=== PATIENT | female | born 1980 | race Caucasian/White ===

== ENCOUNTER → 2019-10-01 09:23 | Outpatient (CLI) | payer BC, SELFPAY ==
[2019-09-16 11:41] VITALS: BMI 30.8
--- NOTE | 2019-10-01 09:32 | BI_ITS ---
MAMMOGRAPHY - BILATERAL DIAGNOSTIC REASON FOR EXAM: Female, 39 years old. Bilateral breast pain. PERTINENT HISTORY: Non-contributory. TECHNIQUE: Digital bilateral breast teena (3D mammographic acquisition) in the CC and MLO projections. 2-D mediolateral oblique (MLO) and craniocaudad (CC) views of both breasts were obtained. CAD: Full Field Digital Mammography with Computer Added Detection was performed. COMPARISON: No comparison mammograms available at this time. If any prior films become available, an addendum to this report can be generated. FINDINGS: Breast Composition: The breasts are almost entirely fatty. There are no dominant masses or suspicious calcifications. There is a 4.8 mm well-defined nodule in the superior retroareolar region of the left breast. Correlation with ultrasound is recommended. Benign-appearing bilateral axillary lymph nodes. No other significant abnormalities are identified. BI/DIAG MAMM W/CAD, BILAT IMPRESSION: 4.8 mm well-defined nodule in the superior retroareolar region of the left breast. Correlation with ultrasound is recommended. ASSESSMENT CATEGORY: BIRADS Category 2: Benign. A letter regarding these results will be sent to the patient by the facility within 30 days. Approximately 10% of breast cancers are not detected by mammography. A normal mammogram should not delay biopsy of a clinically suspicious abnormality. Electronically Signed: Michael Taylor, at 10:50 EDT , Service support ,
--- NOTE | 2019-10-01 10:37 | US_ITS ---
STUDY: ULTRASOUND BREAST - LEFT REASON FOR EXAM: Female, 39 years old. Pain in the left breast. TECHNIQUE: Axial and longitudinal images of the LEFT breast were performed with a high resolution ultrasound transducer. # OF IMAGES: 48 COMPARISON: Comparison is made with prior mammogram done earlier today. FINDINGS: LEFT Breast: The retroareolar region of the breast was examined by ultrasound. There is homogeneous fibroglandular tissue. No solid or cystic mass lesion is seen. US/Breast Limited Unilateral IMPRESSION: Unremarkable sonogram. ASSESSMENT CATEGORY: BIRADS Category 1: Negative. A letter regarding these results will be sent to the patient by the facility within 30 days. Electronically Signed: Michael Taylor, at 12:16 EDT , Service support ,
== END ==
PROVIDERS: Referring Provider Nurse Practitioner Women's Health; Visit Provider Nurse Practitioner Women's Health
DX: N64.4 Mastodynia (principal)
CPT/HCPCS: 76642; 77062; 77066; G0279

== ENCOUNTER → 2019-10-08 13:54 | Outpatient (CLI) | payer BC, SELFPAY ==
[2019-10-08 13:41] VITALS: BMI 30.8
--- NOTE | 2019-10-08 13:55 | BI_ITS ---
MAMMOGRAPHY - UNILATERAL DIAGNOSTIC: LEFT BREAST REASON FOR EXAM: Female, 39 years old. Workup for small retroareolar nodular density. PERTINENT HISTORY: Non-contributory. TECHNIQUE: Compression spot views of the left breast in the mediolateral oblique and craniocaudad views were obtained. CAD: Full Field Digital Mammography with Computer Added Detection was performed. COMPARISON: Comparison is made with prior mammogram dated October 01, 2019. FINDINGS: Breast Composition: The breasts are almost entirely fatty. I suspect a persistent 4.5 mm nodular density within the slightly superior lateral aspect of the retroareolar region of the breast. A repeat targeted sonogram is recommended. No other significant abnormalities are identified. BI/DIAG MAMM W/CAD, UNILAT IMPRESSION: Persistent nodular density as described. A repeat targeted sonogram is recommended. ASSESSMENT CATEGORY: BIRADS Category 0: Incomplete. Need additional imaging evaluation. A letter regarding these results will be sent to the patient by the facility within 30 days. Approximately 10% of breast cancers are not detected by mammography. A normal mammogram should not delay biopsy of a clinically suspicious abnormality. Electronically Signed: Michael Taylor, at 14:43 EDT , Service support ,
== END ==
PROVIDERS: Referring Provider Surgery; Visit Provider Surgery
DX: N63.0 Unspecified lump in unspecified breast (principal)
CPT/HCPCS: 77065

== ENCOUNTER → 2019-10-12 10:46 | Outpatient (CLI) | payer BC, SELFPAY ==
[2019-10-08 13:41] VITALS: BMI 30.8
--- NOTE | 2019-10-12 10:51 | US_ITS ---
STUDY: ULTRASOUND BREAST - LEFT REASON FOR EXAM: Female, 39 years old. LEFT BREAST PAIN ABN LEFT MAMM TECHNIQUE: Axial and longitudinal images of the LEFT breast were performed with a high resolution ultrasound transducer. # OF IMAGES: 30 COMPARISON: None. FINDINGS: LEFT Breast: There is an oval-shaped lesion in the retroareolar area in the left breast measuring 0.4 x 0.4 x 0.2 cm Posterior Enhancement: No. Posterior Shadowing: None. Margins: Sharp and smooth. Echogenicity: Hypoechoic. Compression effect on Shape: No change. US/Breast Limited Unilateral IMPRESSION: Probably benign lesion in the area of described abnormality on the mammogram. ASSESSMENT CATEGORY: BIRADS Category 3: Probably Benign - Short-Interval Follow-up Suggested. A letter regarding these results will be sent to the patient by the facility within 30 days. Electronically Signed: James Girard, at 10:32 EDT Tel , Service support ,
== END ==
PROVIDERS: Referring Provider Nurse Practitioner Women's Health; Visit Provider Surgery
DX: N64.4 Mastodynia (principal)
CPT/HCPCS: 76642

== ENCOUNTER → 2020-04-13 12:30 | Outpatient (CLI) | payer OTHER, SELFPAY ==
[2019-10-08 13:41] VITALS: BMI 30.8
--- NOTE | 2020-04-13 12:32 | US_ITS ---
STUDY: ULTRASOUND BREAST - LEFT REASON FOR EXAM: Female, 40 years old. Six-month follow-up examination. TECHNIQUE: Axial and longitudinal images of the LEFT breast were performed with a high resolution ultrasound transducer. # OF IMAGES: 15 COMPARISON: Comparison is made with prior sonogram dated 10/12/2019. FINDINGS: LEFT Breast: There is a 3 mm x 3 mm x 3 mm well-defined hypoechoic nodule in the retroareolar region of the left breast. This is essentially unchanged. This is not a typical cyst. Biopsy is recommended. US/Breast Limited Unilateral IMPRESSION: Stable 10 mm x 3 mm x 3 mm well-defined hypoechoic solid nodule in the retroareolar region of the breast as described. This is essentially unchanged. Tissue diagnosis is recommended. ASSESSMENT CATEGORY: BIRADS Category 4: Suspicious - Biopsy Should Be Considered. A letter regarding these results will be sent to the patient by the facility within 30 days. Electronically Signed: Michael Taylor, at 13:25 EST , Service support ,
== END ==
PROVIDERS: Referring Provider Surgery; Visit Provider Surgery
DX: R92.8 Other abnormal and inconclusive findings on diagnostic imaging of breast (principal)
CPT/HCPCS: 76642

== ENCOUNTER → 2020-04-18 16:32 | Outpatient (CLI) | payer OTHER, SELFPAY ==
[2019-10-08 13:41] VITALS: BMI 30.8
--- NOTE | 2020-04-18 13:52 | BRBX_PTH ---
PATIENT: JANELL CUNNINGHAM LOC: [facility] U#:[id number] AGE/SX: 45/F ROOM: RE04/18/[address]: Dr. Bereket Shaw MD : 1980 BED: DIS: SPEC #: [id number] RECD: 04/18/20 16:02 STATUS: MANUEL SONYA #: [id number] CLAUDY: 04/18/20 13:[address]: Bereket Shaw DEPT: SURGICAL PATHOLOGY RECD BY: Tere Green Tissues: Breast, NOS Procedures: Surgery Specimen Level IV HEADER OPERATION: Left breast biopsy PRE-OP DIAGNOSIS: Left breast nodule TISSUE SUBMITTED: Left breast tissue MICROSCOPIC DIAGNOSIS Left breast tissue, core biopsy: Fibrocystic changes and moderate to florid intraductal hyperplasia without atypia. Negative for malignancy. See comment. CONY:fritz 04/21/20 COMMENT Correlation with clinical, radiologic findings and appropriate follow up are necessary. MICROSCOPIC DESCRIPTION Slides are reviewed. GROSS DESCRIPTION Received in fixative is one container labeled with the patient name and designated left breast. The specimen consists of multiple elongated fragments of gan-yellow fibroadipose tissue that in aggregate measure 2 x 1.5 x 0.1 cm. The entire specimen is submitted in one cassette. / SJ:rg 04/19/20 TC:5 CPT: 61607
== END ==
PROVIDERS: Visit Provider Surgery
DX: N63.20 Unspecified lump in the left breast, unspecified quadrant (principal)
CPT/HCPCS: 88305

== ENCOUNTER → 2020-09-19 09:17 | Outpatient (CLI) | payer OTHER, SELFPAY ==
[2019-10-08 13:41] VITALS: BMI 30.8
--- NOTE | 2020-09-19 09:20 | US_ITS ---
STUDY: ULTRASOUND BREAST - LEFT REASON FOR EXAM: Female, 40 years old. Abnormal screening mammogram. TECHNIQUE: Axial and longitudinal images of the LEFT breast were performed with a high resolution ultrasound transducer. # OF IMAGES: 20 COMPARISON: Comparison is made with prior mammogram done earlier today as well as prior ultrasound of the left breast dated 04/13/2020. FINDINGS: LEFT Breast: There is a 4 mm x 3 mm x 3 mm cyst in the right joint region of the breast. US/Breast Limited Unilateral IMPRESSION: 4 mm x 3 mm x 3 mm cyst in the retroareolar region of the left breast. ASSESSMENT CATEGORY: BIRADS Category 2: Benign. A letter regarding these results will be sent to the patient by the facility within 30 days. Electronically Signed: Michael Taylor MD at 12:44 EDT , Service support ,
--- NOTE | 2020-09-19 09:20 | BI_ITS ---
MAMMOGRAPHY - BILATERAL DIAGNOSTIC REASON FOR EXAM: Female, 40 years old. Left breast mass. PERTINENT HISTORY: Non-contributory. TECHNIQUE: Digital bilateral breast teena (3D mammographic acquisition) in the CC and MLO projections. 2-D mediolateral oblique (MLO) and craniocaudad (CC) views of both breasts were obtained. CAD: Full Field Digital Mammography with Computer Added Detection was performed. COMPARISON: Comparison is made with prior study dated 10/01/2019. FINDINGS: Breast Composition: The breasts are almost entirely fatty. There are no dominant masses or suspicious calcifications. A tissue clip marker is seen in the retrocrural region of the left breast. The previously seen nodular density has decreased in size. It presently measures 2 mm. Stable appearance of the small bilateral axillary lymph nodes. No other significant abnormalities are identified. There has been no significant change since the prior study. BI/DIAG MAMM W/CAD, BILAT IMPRESSION: Status post left breast biopsy. With the patient''s history of a left breast mass, correlation with ultrasound is recommended. ASSESSMENT CATEGORY: BIRADS Category 0: Incomplete. Need additional imaging evaluation. A letter regarding these results will be sent to the patient by the facility within 30 days. Approximately 10% of breast cancers are not detected by mammography. A normal mammogram should not delay biopsy of a clinically suspicious abnormality. Electronically Signed: Michael Taylor MD at 11:11 EDT , Service support ,
== END ==
PROVIDERS: Referring Provider Surgery; Visit Provider Surgery
DX: N63.20 Unspecified lump in the left breast, unspecified quadrant (principal)
CPT/HCPCS: 76642; 77062; 77066; G0279

== ENCOUNTER 2021-07-10 16:53 | Emergency (ER) | payer BC, SELFPAY ==
[2021-07-10 16:57] VITALS: BP 143/113; PULSE 96; RESP 15; TEMP 36.7; O2SAT 99; BMI 31.4
--- NOTE | 2021-07-10 17:45 | EX.ED.DYSGE1 ---
HPI History of Present Illness Chief Complaint: Weakness Detail of Chief Complaint: Weakness and not feeling well for several days Informant: patient Narrative Narrative: Patient presents to the emergency department with complaint of feeling off. Patient states that she has been under a lot of stress lately as she has been caring for her elderly grandparents. Patient also states that her best friend recently and she also had to put her cat to sleep. Patient has history of PTSD and anxiety. Patient states that she feels jittery inside. Last night she took a half a milligram of Ativan which helped her fall asleep and she was able to sleep. Patient also is concerned she might be dehydrated as she has a dry mouth and poor skin turgor. She has been eating normally but does not feel like he is drinking enough fluids. She denies any fever or cough or COVID symptoms. She has not had the COVID vaccine. Patient denies urinary symptoms. Patient also tells me she has a history of seizure disorder and had been on Depakote but has not taken it for over a month. Patient states that its been years since she has had a seizure. Prior similar symptoms: No PFSH PFS Medical History (Updated 07/10/21 @ 19:[address] Tamie Lopes, DO) Breast pain Celiac disease Epilepsy Thomas's disease IBS (irritable bowel syndrome) PTSD (post-traumatic stress disorder) Home Medications albuterol sulfate 90 mcg/actuation aerosol inhaler 2 puff INHALATION Q6H PRN 09/16/19 [History Last Taken Unknown] divalproex 250 mg tablet,extended release 24 hr 10 mg/kg PO DAILY 09/16/19 [History Last Taken Unknown] divalproex 500 mg tablet,extended release 24 hr 500 mg PO DAILY 09/16/19 [History Last Taken Unknown] estradiol 2 mg tablet 2 mg PO DAILY 09/16/19 [History Last Taken Unknown] levothyroxine 150 mcg tablet 150 mcg PO DAILY 09/16/19 [History Last Taken Unknown] lorazepam 0.5 mg tablet 0.5 mg PO DAILY PRN 09/16/19 [History Last Taken Unknown] pseudoephedrine 60 mg-DM 15 mg-guaifenesin 400 mg tablet 1 tab PO Q4H PRN 09/16/19 [History Last Taken Unknown] cholecalciferol (vitamin D3) 1,250 mcg (50,000 unit) capsule 50,000 unit PO QWEEK cap 10/08/19 [History Last Taken Unknown] vitamin B complex 1 cap PO DAILY 10/08/19 [History Last Taken Unknown] Allergy/AdvReac Type Severity Reaction Status Date / Time azithromycin AdvReac Severe heart race Verified 07/10/21 17:00 cefaclor [From Ceclor] AdvReac Severe everything Verified 07/10/21 17:00 shuts down levofloxacin [From Levaquin] AdvReac Intermediate ligament Verified 07/10/21 17:00 pain carbamazepine [From Tegretol] AdvReac Unknown unknown Verified 07/10/21 17:00 ketorolac [From Toradol] AdvReac Unknown Unknown Verified 07/10/21 17:00 dexamethasone AdvReac Other Verified 07/10/21 17:00 Family History Mother Asthma Arthritis Diabetes Grandfather Hypertension Sister Seizures Thyroid disorder Surgical History Cholecystectomy planned H/O sinus surgery H/O: hysterectomy History of tonsillectomy and adenoidectomy S/P removal of ovarian cyst Social History (Updated 04/18/20 @ 14:[address] Bereket Shaw MD) number of children: 0 current occupational status: unemployed Smoking Status: Never smoker alcohol intake: never substance use type: does not use diet: gluten free seatbelt use: always do you feel safe at home: Yes additional social history: [place] ROS ROS ED Constitutional Constitutional ED: Reports systems reviewed and no addt'l complaints, except as documented; Denies body ache(s), change in weight or chills Eyes Eyes: Denies acute decrease in peripheral vision, change in vision, double vision or loss of vision ENT ENT ED: Reports none and other Details: Dry mouth ; Denies ear pain, lip swelling, loss taste/smell, neck pain, otalgia or sore throat Cardiovascular Cardiovascular: Reports none; Denies abdominal pain, chest pain with activity, leg edema, lightheadedness, palpitations, rapid heart rate or syncope Respiratory/Chest Respiratory/Chest: Reports none; Denies change in mental status, dry cough, dyspnea, hemoptysis, shortness of breath at rest or shortness of breath with exertion Gastrointestinal Gastrointestinal: Reports none; Denies abdominal pain, change in stool character, diarrhea, hematemesis, hematochezia, melena, rectal bleeding or vomiting Genitourinary Genitourinary ED: Reports none; Denies abdominal discomfort, anuria, dysuria, genital pain or polyuria Musculoskeletal Musculoskeletal: Reports none; Denies arthralgias, back pain, difficulty walking, extremity pain, muscle weakness or myalgias Integumentary Reports none; Denies abscess or rash Neurologic Neurologic: Reports none and other Details: Feels jittery, lightheaded ; Denies abnormal gait, confusion, focal weakness, frequent falls, headache(s), loss of vision, numbness, paresthesias, radicular pain, vertigo or weakness Psychiatric Psychiatric: Reports systems reviewed and no addt'l complaints, except as documented and none; Denies behavioral changes, confusion, difficulty concentrating, hallucinations, suicidal ideation, tactile hallucinations or visual hallucinations Endocrine Endocrinology: Denies none, cold intolerance, excessive sweating, fatigue or heat intolerance Hematologic/Lymphatic Hematologic/Lymphatic: Reports none; Denies anemia, easy bleeding or easy bruising Allergic/Immunologic Allergic/Immunologic ED: Denies as per HPI, none, lip swelling, mouth swelling, throat swelling, tongue swelling or hives EXAM Physical Exam Const Vital Signs: 07/10/21 16:57 07/10/21 19:22 07/10/21 19:28 Temperature 98.0 F Temperature Source Temporal Pulse Rate 96 91 Pulse Rate [Lying] 80 Pulse Rate [Sitting] 79 Pulse Rate [Standing] 107 H Respiratory Rate 15 20 H Respiratory Effort Respiratory Pattern Blood Pressure 143/113 H 113/85 H Blood Pressure [Lying] 122/79 H Blood Pressure [Sitting] 126/77 H Blood Pressure [Standing] 113/85 H Blood Pressure Mean 123 94 Blood Pressure Mean [Lying] 93 Blood Pressure Mean [Sitting] 93 Blood Pressure Mean [Standing] 94 Pulse Ox 99 96 Oxygen Delivery Method Room Air Room Air 07/10/21 19:31 07/10/21 19:48 Temperature Temperature Source Pulse Rate 87 Pulse Rate [Lying] Pulse Rate [Sitting] Pulse Rate [Standing] Respiratory Rate 18 Respiratory Effort Normal Non-Labored Respiratory Pattern Normal Blood Pressure 118/82 H Blood Pressure [Lying] Blood Pressure [Sitting] Blood Pressure [Standing] Blood Pressure Mean 94 Blood Pressure Mean [Lying] Blood Pressure Mean [Sitting] Blood Pressure Mean [Standing] Pulse Ox 94 Oxygen Delivery Method Room Air Positive well nourished and well developed General Appearance ED: well developed and NAD HEENT Reports TM's clear and moist mucous membranes normocephalic and atraumatic; Negative for trauma or tenderness Tympanic Membrane ED: Yes TM's clear Eyes PERRL and EOMs intact bilaterally General Eye ED: Negative for pale conjunctiva or scleral icterus Neck no lymphadenopathy, supple and no JVD General: Negative for tenderness Chest Wall inspection of chest normal and palpation of chest normal Chest: Negative for tenderness Resp normal respiratory effort and clear to auscultation bilaterally Effort and Inspection: Negative for respiratory distress or pain with movement Auscultation: Negative for rhonchi, wheezes or diminished lung sounds Cardio regular rate, regular rhythm, S1 normal heart sound, S2 normal heart sound and no murmurs Peripheral Pulses: pulses 2+ throughout GI normal to inspection, nondistended, normoactive bowel sounds, soft to palpation, non-tender, non-distended and no masses Back/Spine no CVA tenderness and no thoracic nor lumbar tenderness Extremity normal to inspection General Extremety ED: Negative for edema General Extremity: Negative for edema Neuro oriented x3, CN's II-XII intact bilaterally, no sensory deficits noted and gait normal Sensorium / Orientation: awake, alert, oriented to person, oriented to place and oriented to time Motor Exam: strength 5/5 throughout and strength abnormal Psych mental status grossly normal Skin no rashes or lesions noted and no wounds MDM MDM MDM Narrative Medical decision making narrative: IV line established on arrival. Patient was given a liter normal same fluid bolus. Patient was given a milligram of Ativan. She did feel improved. At this point I feel likely symptoms related to stress and anxiety. Patient in agreement. I recommended following up with a counselor or psychiatrist for some talk therapy and potentially getting on daily medication to assist with her anxiety and stress. Patient still has as needed Ativan at home. Lab Data Attestation: I reviewed the patient's lab results. Labs: Laboratory Results - last 24 hr 07/10/21 07/10/21 07/10/21 18:10 18:10 18:10 WBC 8.2 RBC 5.01 Hgb 14.4 Hct 41.9 MCV 83.6 MCH 28.7 MCHC 34.4 RDW Std Deviation 37.3 RDW Coeff of Cheryl 12.3 Plt Count 322 MPV 9.5 Immature Gran % (Auto) 0.400 Neut % (Auto) 80.4 H Lymph % (Auto) 14.2 L [place] % (Auto) 4.3 Eos % (Auto) 0.5 Baso % (Auto) 0.2 Absolute Neuts (auto) 6.6 Absolute Lymphs (auto) 1.17 Nucleated RBC % 0 Sodium 139 Potassium 3.8 Chloride 107 Carbon Dioxide 27.0 Anion Gap 5 BUN 13 Creatinine 0.63 Estim Creat Clear Calc 86.89 Est GFR (MDRD) Af Amer 133 Est GFR (MDRD) Non-Af 110 BUN/Creatinine Ratio 20.7 H Glucose 122 H Calcium 9.8 Urine Color Yellow Urine Clarity Clear Urine pH 6.0 Ur Specific [place] 1.020 Urine Protein Negative Urine Glucose (UA) Normal Urine Ketones Negative Urine Occult Blood Negative Urine Nitrite Negative Urine Bilirubin Negative Urine Urobilinogen Normal Ur Leukocyte Esterase Negative Urine RBC 0 SEEN Urine WBC 0 SEEN Ur Squamous Epith Cells 0 SEEN Urine Bacteria 0 SEEN Urine Mucus 0 SEEN Discharge Plan Triage Chief Complaint: Weakness ED Provider: Tamie Lopes Dx/Rx/DC Orders Clinical Impression: Anxiety, Stress reaction Instructions: Treating Anxiety Disorders ..., Identifying Causes of Stress, Stress Relief: Relaxation, ED Anxiety Reaction Prescriptions: No Action divalproex 250 mg tablet extended release 24 hr 10 mg/kg PO DAILY RF: 0 divalproex 500 mg tablet extended release 24 hr 500 mg PO DAILY RF: 0 levothyroxine [Synthroid] 150 mcg tablet 150 mcg PO DAILY RF: 0 estradiol 2 mg tablet 2 mg PO DAILY RF: 0 Capmist DM 60-15-400 mg tablet 1 tab PO Q4H PRNRF: 0 lorazepam [Ativan] 0.5 mg tablet 0.5 mg PO DAILY PRNRF: 0 albuterol sulfate 90 mcg/actuation HFA aerosol inhaler 2 puff INHALATION Q6H PRNRF: 0 cholecalciferol (vitamin D3) 1,250 mcg (50,000 unit) capsule 50,000 unit PO QWEEK RF: 0 vitamin B complex [Super B-50 Complex] Capsule 1 cap PO DAILY RF: 0 Referrals: KHARI PETERSEN [Other] Disposition Disposition: Home, Self Care
[2021-07-10 18:20] LABS: Absolute Lymphocyte Count 1.17 X10^3/uL (0.83-4.51); Absolute Neutrophil Count 6.6 X10^3/uL (2.0-7.7); Basophil# 0.02 X10^3/uL; Basophil% 0.2 % (0-1); Eosinophil# 0.04 X10^3/uL; Eosinophils% 0.5 % (0-5); Hematocrit 41.9 % (37-47); Hemoglobin 14.4 g/dL (12.0-15.0); Lymphocyte # 1.17 X10^3/ul (0.83-4.51); Lymphocyte % 14.2 % (19-41); Mean Corp Hgb Conc 34.4 g/dL (32-36); Mean Corpuscular Hgb 28.7 pg (27.0-32.0); Mean Corpuscular Volume 83.6 fL (81-99); Mean Platelet Vol. 9.5 fl (6.2-12.0); Monocyte# 0.35 X10^3/uL; Monocyte% 4.3 % (0-10); NRBC Flagged by Analyzer 0 % (0-5); Neutrophil # 6.61 X10^3/uL (2.7-7.7); Neutrophil % 80.4 % (47-70); Platelet Count 322 K/mm3 (150-450); RBC Distribution Width CV 12.3 % (11.6-14.6); RBC Distribution Width SD 37.3 fl (35.1-43.9); Red Blood Count 5.01 M/mm3 (4.2-5.4); White Blood Count 8.2 K/mm3 (4.4-11.0)
[2021-07-10 18:33] LABS: Anion Gap 5 (5-15); BUN 13 mg/dL (7-18); BUN/Creat Ratio 20.7 RATIO (10-20); Calcium,Total 9.8 mg/dL (8.5-10.1); Chloride 107 mmol/L (98-107); Creatinine, Serum 0.63 mg/dL (0.55-1.02); EST Glomerular Filtration Rate 110 mL/min (>60); Est Glom Filt Rate - Afr Amer 133 mL/min (>60); Estimated Creatinine Clearance 86.89 ml/min; Glucose 122 mg/dL (74-106); Potassium 3.8 mmol/L (3.5-5.1); Sodium Level 139 mmol/L (136-145)
[2021-07-10] MEDS: LORazepam 2 MG/ML Syringe 1 MG IV (19:15)
[2021-07-10] MEDS: 0.9% Normal Saline 1,000 ML 1000 ML IV (19:15)
[2021-07-10 19:22] VITALS: BP 113/85; BP 122/79; BP 126/77; PULSE 107; PULSE 79; PULSE 80
[2021-07-10 19:28] VITALS: BP 113/85; PULSE 91; RESP 20; O2SAT 96
[2021-07-10 19:34] LABS: Bacteria 0 SEEN /hpf (None Seen); Mucous, Urine 0 SEEN /hpf (<or=2+); Red Blood Cells-Urine 0 SEEN /hpf (0-5); Squamous Epithelial Cells - UA 0 SEEN /hpf (5-10); White Blood Cells 0 SEEN /hpf (0-5)
[2021-07-10 19:38] LABS: Color, Urine Yellow (Yellow); Glucose, Dipstick Normal (Normal); Ketone-Dipstick Negative (Negative); Leukocyte Esterase-Dipstick Negative /ul (Negative); Nitrite-Dipstick Negative (Negative); Occult Blood-Urine Negative /ul (Negative); Protein-Dipstick Negative (Negative); Urine Bilirubin Dipstick Negative (Negative); Urine Clarity Clear (Clear); Urine Urobilinogen Normal (Normal)
[2021-07-10 19:48] VITALS: BP 118/82; PULSE 87; RESP 18; O2SAT 94
[2021-07-10 20:07] VITALS: BP 111/71; PULSE 87; RESP 20; O2SAT 96
== END 2021-07-10 20:50 | disposition home or self-care (01) ==
PROVIDERS: Emergency Provider Emergency Medicine; Visit Provider Emergency Medicine
DX: F43.9 Reaction to severe stress, unspecified (principal); G40.909 Epilepsy, unspecified, not intractable, without status epilepticus; Z56.0 Unemployment, unspecified; F41.9 Anxiety disorder, unspecified; E06.3 Autoimmune thyroiditis; K58.9 Irritable bowel syndrome, unspecified; F43.10 Post-traumatic stress disorder, unspecified
CPT/HCPCS: 80048; 81001; 85025; 96361; 96374; 99285; J7030; A4216

== ENCOUNTER → 2021-09-20 | Outpatient (CLI) | payer BC, SELFPAY ==
--- NOTE | 2021-09-20 10:54 | BI_ITS ---
MAMMOGRAPHY - BILATERAL SCREENING REASON FOR EXAM: Female, 41 years old. Routine annual screening examination. PERTINENT HISTORY: Non-contributory. TECHNIQUE: Digital bilateral breast brittney (3D mammographic acquisition) in the CC and MLO projections. 2-D mediolateral oblique (MLO) and craniocaudad (CC) views of both breasts were obtained. CAD: Full Field Digital Mammography with Computer Added Detection was performed. COMPARISON: Comparison is made with prior examination dated 09/19/2020 and 10/01/2019. FINDINGS: Breast Composition: The breasts are almost entirely fatty. There are no dominant masses or suspicious calcifications. Once again, a tissue clip marker is seen within a tiny nodular density in the retroareolar region of the left breast. Stable appearance of the right axillary lymph nodes. No other significant abnormalities are identified. There has been no significant change since the prior study. BI/SCRN MAMM (CAD)W/BRITTNEY BILAT IMPRESSION: Stable bilateral screening mammogram. Yearly follow-up mammogram recommended. (A) ASSESSMENT CATEGORY: BIRADS Category 2: Benign. A letter regarding these results will be sent to the patient by the facility within 30 days. Approximately 10% of breast cancers are not detected by mammography. A normal mammogram should not delay biopsy of a clinically suspicious abnormality. [id number] Electronically Signed: Michael Taylor MD at 12:29 EDT ,
== END | disposition home or self-care (01) ==
LOC: OPBI 10:49
PROVIDERS: Referring Provider Surgery; Visit Provider Surgery
DX: Z12.31 Encounter for screening mammogram for malignant neoplasm of breast (principal)
CPT/HCPCS: 77063; 77067

== ENCOUNTER → 2022-09-23 | Outpatient (CLI) | payer OTHER, SELFPAY ==
--- NOTE | 2022-09-23 09:13 | BI_ITS ---
MAMMOGRAPHY - BILATERAL SCREENING REASON FOR EXAM: Female, 42 years old. Routine annual screening examination. PERTINENT HISTORY: Non-contributory. Prior left ultrasound-guided breast biopsy. TECHNIQUE: Digital bilateral breast brittney (3D mammographic acquisition) in the CC and MLO projections. 2-D mediolateral oblique (MLO) and craniocaudad (CC) views of both breasts were obtained. CAD: Full Field Digital Mammography with Computer Added Detection was performed. COMPARISON: Comparison is made with prior study September 20, 2021 and September 19, 2020. FINDINGS: Breast Composition: The breasts are almost entirely fatty. There are no dominant masses or suspicious calcifications. A tissue clip marker is seen in the tiny nodule in the slightly upper retroareolar area origin of the left breast. Stable small benign-appearing bilateral axillary lymph nodes. No other significant abnormalities are identified. There has been no significant change since the prior study. BI/SCRN MAMM (CAD)W/BRITTNEY BILAT IMPRESSION: Stable bilateral screening mammogram. Yearly follow-up mammogram recommended. (A) ASSESSMENT CATEGORY: BIRADS Category 2: Benign. A letter regarding these results will be sent to the patient by the facility within 30 days. Approximately 10% of breast cancers are not detected by mammography. A normal mammogram should not delay biopsy of a clinically suspicious abnormality. [id number] Electronically Signed: Michael Taylor MD at 10:35 EDT ,
== END | disposition home or self-care (01) ==
LOC: OPBI 09:11
PROVIDERS: Referring Provider Obstetrics & Gynecology; Visit Provider Obstetrics & Gynecology
DX: Z12.31 Encounter for screening mammogram for malignant neoplasm of breast (principal)
CPT/HCPCS: 77063; 77067